=== PATIENT | male | born 1975 | race Two or more races ===

== ENCOUNTER 2023-10-03 10:16 | Emergency (ER) | payer BC, SELFPAY ==
[2023-10-03 10:24] VITALS: BP 153/104; PULSE 73; RESP 18; TEMP 36.3; O2SAT 96; BMI 25.8
--- NOTE | 2023-10-03 11:28 | CRLHL7_ITS ---
For Patients: As a result of the Cures Act, medical imaging exams and procedure reports are released immediately into your electronic medical record. You may view this report before your referring provider. If you have questions, please contact your health care provider. INDICATION: Right upper quadrant abdomen pain. TECHNIQUE: Ultrasound abdomen limited. Sonographic images of the right upper quadrant were obtained using lopez-scale and color Doppler images. COMPARISON: None. FINDINGS: Liver: Normal in size and echotexture. No suspicious masses. No intrahepatic biliary dilatation. Gallbladder: Mildly distended gallbladder with wall thickening and cholelithiasis. Positive sonographic Kunz`s sign per physician/allergy/immunology. Common bile duct: 4 mm. Pancreas: Obscured. Right kidney: Normal in size. Normal echotexture and cortex. No suspicious masses, stones, or hydronephrosis. Vasculature: Proximal abdominal aorta and IVC are unremarkable. IMPRESSION: Mildly distended gallbladder with wall thickening and cholelithiasis. Positive sonographic Kunz sign per physician/allergy/immunology. Constellation of findings are concerning for acute cholecystitis in the appropriate clinical setting. Recommend correlation with localized physical examination and laboratory values. No biliary obstruction. Dictated by Calos Rosa MD @ 10/03/2023 12:35:25 PM (Electronically Signed)
--- NOTE | 2023-10-03 11:29 | ED_ITS ---
HPI - Abdominal Pain General Chief Complaint: Abdominal Pain Stated Complaint: RT sided abdominal pain Time Seen by Provider: 10/03/23 10:42 History of Present Illness HPI narrative: This 48-year-old male comes in reporting right upper quadrant pain that began yesterday. This occurred after eating some ice cream. His pain resolved after some time and again after taking food today he had pain in the right upper quadrant. He states that he continues to have discomfort in this area. He does not report any fevers, nausea, vomiting. Related Data Home Medications ?Medication ?Instructions ?Recorded ?Confirmed Татьяна 10/03/23 ibuprofen 10/03/23 Previous Rx's ?Medication ?Instructions ?Recorded ketorolac 10 mg tablet 10 mg PO Q8H 5 days #15 tabs 10/03/23 Allergies Allergy/AdvReac Type Severity Reaction Status Date / Time No Known Drug Allergies Allergy Verified 10/03/23 10:27 Review of Systems Status of ROS Reports: 10 or more systems reviewed and unremarkable except as noted in History and below Narrative Constitutional: No fevers, no weight gain or loss. Eyes: No discharge. No vision changes. HENT: No congestion, no sore throat, no ear pain. Cardiovascular: No chest pain, no palpitations. Respiratory: No shortness of breath, no wheezes, no cough. Gastrointestinal: No vomiting, no diarrhea. Right upper quadrant abdominal pain. Genitourinary: No dysuria, no hematuria. Musculoskeletal: Normal range of motion. Skin: No rashes, no pruritis. Neurological: No dizziness, weakness, sensory change, speech change. Endo/Heme/Allergies: No bruising or bleeding. No polydipsia. Pysch: no suicidality, no anxiety, no insomnia. All other systems reviewed and are negative. Exam Narrative: Exam Narrative: Constitutional: Well-developed, well-nourished, no acute distress. HEENT: Normocephalic, atraumatic. Neck: Normal range of motion. Nontender. Supple. Heart: Regular. No murmurs. Normal rate. Intact distal pulses. Lungs: Clear to auscultation. No chest discomfort. No wheezes, rhonchi, or rales. Abdomen: Normal bowel sounds. Distinct pain in the right upper quadrant when palpating in this area. No rebound tenderness. Genitalia: Deferred. Back: No midline tenderness. Normal range of motion. Extremities: Normal range of motion. No injury. Skin: Intact. No rash. Warm. No erythema or pallor. Neurologic: No altered sensation. No weakness. Alert and oriented. Psychiatric: No suicidality. No anxiety or depression. No insomnia. Nursing notes and vitals signs are reviewed. Const: Vital Signs, click to edit/add: Vital Signs - 24 hr 10/03/23 10:24 Temperature 97.4 F L Pulse Rate [Pulse Oximeter] 73 Respiratory Rate 18 Blood Pressure [Ri t Upper Arm] 153/104 H Pulse Oximetry 96 Oxygen Delivery Me thod Room Air Course Vital Signs Vital signs: Initial Vital Signs Temperature 97.4 F L 10/03/23 10:24 Temperature Source Temporal Artery Scan 10/03/23 10:24 Pulse Rate 73 10/03/23 10:24 Respiratory Rate 18 10/03/23 10:24 Blood Pressure 153/104 H 10/03/23 10:24 Blood Pressure Mean 120 H 10/03/23 10:24 Blood Pressure Position Sitting 10/03/23 10:24 Pulse Oximetry 96 10/03/23 10:24 Oxygen Delivery Method Room Air 10/03/23 10:24 Vital Signs Temperature 97.4 F L 10/03/23 10:24 Pulse Rate 73 10/03/23 10:24 Respiratory Rate 18 10/03/23 10:24 Blood Pressure 153/104 H 10/03/23 10:24 Pulse Oximetry 96 10/03/23 10:24 Oxygen Delivery Method Room Air 10/03/23 10:24 Temperature 97.4 F L 10/03/23 10:24 Pulse Rate 73 10/03/23 10:24 Respiratory Rate 18 10/03/23 10:24 Blood Pressure 153/104 H 10/03/23 10:24 Pulse Oximetry 96 10/03/23 10:24 Oxygen Delivery Method Room Air 10/03/23 10:24 MDM - Abdominal Pain MDM Narrative Medical decision making narrative: This 48-year-old male comes in with right upper quadrant pain that is postprandial. This is suspicious for gallbladder disease. An ultrasound is obtained which does show multiple stones in the gallbladder with no sign of obstruction. Labs are acquired also and his white count is in normal range as are liver and pancreas enzymes. The patient did receive an IV dose of Toradol 15 mg which brought good relief to his pain. He is okay to be discharged home but encouraged to follow up with surgery Clinic as he seems to be having pain when taking food and would likely need surgical removal of his gallbladder sooner than later. I advised him to return if pain is not controlled or worsening symptoms happen. Lab Data Labs: Lab Results 10/03/23 Range/Units 12:25 WBC 9.25 (4.50-11.00) K/uL RBC 4.96 (4.30-5.90) m/uL Hgb 13.9 (13.5-17.5) gm/dL Hct 42.7 (37.0-53.0) % MCV 86 (80-100) fL MCH 28 (26-34) pg MCHC 33 (32-36) gm/dL RDW Coeff of Christina 12.6 (11.5-15.5) % Plt Count 386 (140-440) K/uL Neut % (Auto) 76.5 H (42.0-72.0) % Lymph % (Auto) 14.7 L (20-44) % Bourbon % (Auto) 4.9 (0.0-11.0) % Eos % (Auto) 3.1 (0.0-7.0) % Baso % (Auto) 0.6 (0.0-3.0) % Neut # (Auto) 7.10 H (1.7-7.0) K/uL Lymph # (Auto) 1.40 (0.90-2.90) K/uL Bourbon # (Auto) 0.50 (0.00-0.90) K/UL Eos # (Auto) 0.29 (0.00-0.50) K/uL Baso # (Auto) 0.06 (0.00-0.30) K/uL Abs Immat Gran (auto) 0.02 (0.00-0.30) K/uL Imm/Tot Granulo (auto) 0.2 % Sodium 139 (135-149) mmol/L Potassium 4.2 (3.6-5.1) mmol/L Chloride 104 (96-114) mmol/L Carbon Dioxide 25 (20-32) mmol/L Anion Gap 10 (7-15) mEq/L BUN 17 (5-24) mg/dL Creatinine 0.9 (0.5-1.5) mg/dL Estimated Creat Clear 101.47 Estimated GFR 106 ml/min Glucose 97 (60-115) mg/dL Calcium 9.4 (8.4-10.6) mg/dL Total Bilirubin 0.7 (0.1-1.5) mg/dL Direct Bilirubin 0.3 (0.0-0.5) mg/dL AST 24 (12-35) U/L ALT 22 (4-50) U/L Alkaline Phosphatase 81 (40-150) U/L Total Protein 8.4 H (6.0-8.3) g/dL Albumin 4.6 (3.3-5.0) g/dL Lipase 46 (23-300) U/L Imaging Data US - abdomen: Radiologist's impression: Mildly distended gallbladder with wall thickening and cholelithiasis. Positive sonographic Kunz sign per manager compensation. Constellation of findings are concerning for acute cholecystitis in the appropriate clinical setting. Recommend correlation with localized physical examination and laboratory values. No biliary obstruction. Discharge Plan Discharge Clinical Impression: Cholelithiasis Patient Disposition: Home, Self-Care Condition: Stable Additional Instructions: Take medication as needed and indicated. Follow up with surgery Clinic for ongoing management. Call [phone] for appointment. Return if worsening. Prescriptions: New ketorolac 10 mg tablet 10 mg PO Q8H 5 Days Qty: 15 0RF No Action ibuprofen Татьяна Follow Up/Referrals: Gloria Jc DO [Primary Care Provider] - Stand Alone Forms: [employer] Info Instructions
--- OUTSIDE RECORDS SUMMARY | 2023-10-03 11:40 | XMS_ITS | Clinical Summary ---
Author Organization [facility] Address [place], [place] [address] Care Team Providers Care Weight Loss Centre Manager Name Role Phone Pcp, No Primary Care Provider Unavailabl e Allergies No known active allergies Medications Medication Sig Dispensed Refills Start Date End Date Status methocarbamoL (ROBAXIN) 500 mg tabletIndications:Acu te left-sided low back pain without sciatica Take 1-2 tablets by mouth every 6-8 hours as needed for back pain and back spasms. 20 Tablet 12/03/2021 Active ibuprofen (ADVIL; MOTRIN) 800 mg tabletIndications:Acu te left-sided low back pain without sciatica Take 1 Tablet (800 mg) by mouth every 6 hours if needed for Pain. 30 Tablet 12/03/2021 Active Active Problems No known active problems Encounters Date Type Department Care Team Description 10/03/2023 7:50 AM CDT Office Visit [facility] [address] [place] [address] Bisi Robles PA Abdominal Pain 10/03/2023 Travel 09/28/2023 11:00 AM CDT Ancillary Procedure [facility] [address] [place] [address] Arrived 09/28/2023 10:15 AM CDT Office Visit [facility] [address] [place] [address] Bisi Robles PA Pain 09/28/2023 Travel from Last 3 Months Immunizations Name Administration Dates Next Due COVID-19 vaccine (Moderna 10 0mcg/0.5mL) PF, MDV 01/22/2021 HepA-HepB (Twinrix) 04/27/2022,12/23/2021,2021 Influenza, IIV4 12/24/2020,01/14/2019,01/03/2018 MMR 05/12/1986,07/25/1981 Td (Age >=7 Years) 10/22/2021 Tdap 11/24/2009 Varicella Vaccine 01/02/2010,12/03/2009 Family History Medical History Relation Name Comments Heart attack Father Hyperlipidemia Mother Hyperlipidemia Sister Relation Name Status Comments Father Mother Alive Sister Alive Social History Tobacco Use Types Packs/Day Years Used Date Smoking Tobacco: Never Smokeless Tobacco: Never Tobacco Cessation:Counseling Given: Yes Alcohol Use Standard Drinks/Week Comments Yes 0 (1 standard drink = 0.6 oz pur e alcohol) PHQ-2 Answer Date Recorded PHQ-2 TOTAL SCORE 0 10/22/2021 Social Connections Answer Date Recorded Frequency of Communication with Friends and Fami ly 0 09/28/2023 Alcohol Use Answer Date Recorded How often do you have a drink containing alcohol ? 1 10/22/2021 How many drinks containing a lcohol do you have on a typical day when you are drinking? 0 10/22/2021 How often do you have five or more drinks on one occasion? 0 10/22/2021 Financial Resource Strain Answer Date R ecorded Difficulty of Paying Living Expenses 3 09/28/2023 Difficulty of Paying Living Expenses Not on file 09/28/2023 Food Insecurity Answer Date Recorded Worried About Running Out of Food in the Last Ye ar 1 09/28/2023 Transportation Needs Answer Date Record ed Lack of Transportation (Medical) 1 09/28/2023 Housing Stability Answer Date Recorded Unable to Pay for Housing in the Last Year 1 09/28/2023 Sex and Gender Information Value Date Recorded Sex Assigned at Not on file Gender Identity Not on file Sexual Orientation Not on file Travel History Travel Start Travel End [place] 09/11/2023 09/18/2023 Obstetrics History Last Filed Vital Signs Vital Sign Reading Time Taken Comments Blood Pressure 139/87 10/03/2023 7:52 AM CDT Pulse 78 10/03/2023 7:52 AM CDT Temperature - - Respiratory Rate - - Oxygen Saturation 96% 10/03/2023 7:52 AM CDT Inhaled Oxygen Concentration - - Weight 85.1 kg (187 lb 9.6 oz) 09/28/2023 10:33 AM CDT Height 176 cm (5' 9.29) 10/22/2021 10:31 AM CDT Body Mass Index 27.47 10/22/2021 10:31 AM CDT Plan of Treatment Health Maintenance Due Date Last Done Comments HIV for age 15-65 1991 BMI (ht and wt on same day) for age 18+ 10/22/2022 10/22/2021 Depression screening for age 12+ 10/26/2022 10/26/2021, 10/25/2021, 10/22/2021, Additional history exists Influenza for age 9-49 11/12/2023 , 01/14/2019, 01/03/2018 Lipids for age 45-75 10/22/2026 10/22/2021 Tetanus booster 10/23/2031 10/22/2021, 11/24/2009 Colonoscopy through age 75 10/27/203110/26, 10/26/2021, 10/26/2021 Tdap Completed 11/24/2009 Hepatitis C screening for age 18-79 Completed 10/22/2021 COVID-19 vaccine series Completed 12/10/19 23, 11/19/2021, 01/22/2021, Additional history exists Pneumococcal series for age 6-64 Aged Out No longer eligible based on patient's age to complete this topic Procedures Procedure Name Priority Date/Time Associated Diagnosis Comments XR ABDOMEN 2 VIEW FLAT AND UPRIGHT OR DECUBITUS STAT 09/28/2023 11:13 AM CDT Abdominal bloating COLONOSCOPY SCREENING Routine 10/26/2021 9:42 AM CDT Screening for colon cancer ANTI HCV Routine 10/22/2021 11:42 AM CDT Need for hepatitis C screening test LIPID PANEL W REFLEX MEASURED LDL Add On 10/22/2021 11:42 AM CDT Family history of coronary artery disease in father Hyperlipidemia, unspecified hyperlipidemia type from Last 3 Months or Most Recently Relevant to Health Maintenance Results * XR ABDOMEN 2 VIEW FLAT AND UPRIGHT OR DECUBITUS (09/28/2023 11:13 AM CDT) Anatomical Region Laterality Modality Abdomen Computed Radiogr aphy 09/28/2023 11:3 3 AM CDT Narrative 09/28/2023 11:33 AM CDT For Patients: ??As a result of the Cures Act, medical imaging exams and procedure reports are released immediately into your electronic medical record. ??You may view this report before your referring provider. ??If you have questions, please contact your health care provider. Indication: Abdominal bloating Technique: Two upright and 2 supine views of the abdomen. Comparison: None. Findings: Mildly elevated right hemidiaphragm. Moderate stool burden in the ascending colon. Mild stool burden in the descending colon. Nonobstructive bowel gas pattern. No large pneumoperitoneum. Visualized lung bases are clear. Impression: Moderate stool burden in the ascending colon. Mild stool burden in the descending colon. Nonobstructive bowel gas pattern. Dictated by Xavi Lopez MD @ 09/28/2023 11:33:15 AM (Electronically Signed) Procedure Note Miah Lopez MD - 09/28/2023 For Patients: As a result of the Cures Act, medical imagingexams and procedure reports are released immediately into your electronicmedical record. You may view this report before your referring provider.If you have questions, please contact your health care provider. Indication: Abdominal bloating Technique: Two upright and 2 supine views of the abdomen. Comparison: None. Findings: Mildly elevated right hemidiaphragm. Moderate stool burden in the ascending colon. Mild stool burden in thedescending colon. Nonobstructive bowel gas pattern. No large pneumoperitoneum. Visualized lung bases are clear. Impression: Moderate stool burden in the ascending colon. Mild stool burden in thedescending colon. Nonobstructive bowel gas pattern. Dictated by Xavi Lopez MD @ 09/28/2023 11:33:15 AM (Electronically Signed) [facility] * COLONOSCOPY (10/26/2021 9:44 AM CDT) 10/26/2021 9:44 AM CDT Narrative Transcriptions Julio Reeves MD - 10/26/2021 10:43 AM CDT Patient Name: Rudy Hunter Procedure Date: 10/26/2021 Gender: Male Date of : 1975 Admit Type: Outpatient Procedure: Colonoscopy Proceduralist: Julio Reeves MD , Macy Huynh (Nurse) Referring MD: Gloria Jc Indications/Pre-Op Diagnosis: Screening for colorectal malignant neoplasm, This is the patient's first colonoscopy Medications: Fentanyl 200 micrograms IV, Midazolam 4 mgIV, The level of sedation administered wasmoderate Procedure Description: The patient had risks, benefits and alternatives explained to andgave informed consent. The patient had a stable cardiopulmonary status and judged an adequate candidate for conscious sedation. The Colonoscope was passed through the anus and advanced to thececum, identified by appendiceal orifice and ileocecal valve. Thecolonoscopy was performed without difficulty. The patient tolerated the procedure well. The quality of the bowel preparation was good. The ileocecal valve, appendiceal orifice, and rectum were photographed. Complications: No immediate complications. Estimated Blood Loss & Specimen: Estimated blood loss: none. Specimen collected - None Findings: The perianal and digital rectal examinations were normal. The entire examined colon appeared normal on direct and retroflexion views. Impressions/Post-Op Diagnosis: - The entire examined colon is normal on direct and retroflexionviews. - No specimens collected. Recommendation: - Patient has a contact number available for emergencies. The signsand symptoms of potential delayed complications were discussed with the patient. Return to normal activities tomorrow. Written discharge instructions were provided to the patient. - Resume previous diet. - Continue present medications. - Repeat colonoscopy in 10 years for screening purposes. Moderate Sedation: Moderate (conscious) sedation was administered by the endoscopy nurse and supervised by the endoscopist. The following parameters were monitored: oxygen saturation, heart rate, respiratory rate, blood pressure, adequacy of pulmonary ventilation and reponse to care. Please refer to the patient's medical record flowsheets and nursing notes for moderate sedation details. Total physician intraservice time was 16 minutes. Julio Reeves MD 10/26/2021 10:43:13 AM This report has been signed electronically. Note Initiated On: 10/26/2021 9:44 AM Procedure Code(s): --- Professional --- 49365, Colonoscopy, flexible; diagnostic, including collection of specimen(s) bybrushing or washing, when performed (separateprocedure) Diagnosis Code(s): --- Professional --- Z12.11, Encounter for screening formalignant neoplasm of colon CPT copyright 2020 [employer]. All rights reserved. The codes documented in this report are preliminary and upon nickel plater reviewmay be revised to meet current compliance requirements. Scope In: 10:24:46 AM Scope Withdrawal Time 0 hours 6 minutes 54 seconds Scope Out: 10:38:30 AM Julio Reeves MD PROCEDURE ORD * (ABNORMAL) LIPID PANEL W REFLEX MEASURED LDL (10/22/2021 11:42 AM CDT) CHOLESTEROL,TOTAL 264(H) 100 - 199 mg/dL 10/23/2021 9:24 AM CDT [facility] TRIGLYCERIDES 197(H) <150 mg/dL 10/23/2021 9:24 AM CDT [facility] HDL CHOLESTEROL 42 >40 mg/dL 2 9:24 AM CDT [facility] NON-HDL CHOLESTEROL 222(H) <145 mg/dl 10/23/2021 9:24 AM CDT [facility] CHOL/HDL RATIO 6.29(H) <4.50 10/23/2021 9:24 AM CDT [facility] LDL CHOLESTEROL 183(H) <=130 mg/dL 10/23/2021 9:24 AM CDT [facility] VLDL CHOLESTEROL 39(H) <=30 mg/dL 10/23/2021 9:24 AM CDT [facility] PROVIDER ORDERED STATUS RANDOM 10/23/2021 9:24 AM CDT [facility] Blood BLOOD SPECIMEN / Unknown Venipuncture / Unknown 10/22/2021 11:42 AM CDT 10/22/2021 11:43 AM CDT Gloria Jc DO CHEMISTRY [facility] [address] [place] [address], * ANTI HCV (10/22/2021 11:42 AM CDT) HEPATITIS C ANTIBODY Non-React radha Non-React radha 10/22/2021 10:57 PM CDT [facility] Comment:Antibodies to HCV no t detected; does not exclude the possibility of exposure to HCV. Blood BLOOD SPECIMEN / Unknown Venipuncture / Unknown 10/22/2021 11:42 AM CDT 10/22/2021 11:43 AM CDT Gloria Jc DO SEND OUTS [facility] [address] [place] [address], from Last 3 Months or Most Recently Relevant to Health Maintenance Care Teams Weight Loss Centre Manager Relationship Specialty Start Date End Date Pcp, No . PCP - General 08/25/21
[2023-10-03] MEDS: KETOROLAC 30 MG/ML inj 15 MG IVP (12:30)
[2023-10-03 12:35] LABS: Basophils Absolute Auto 0.06 K/uL (0.00-0.30); Basophils Percent Auto 0.6 % (0.0-3.0); Eosinophils Absolute Auto 0.29 K/uL (0.00-0.50); Eosinophils Percent Auto 3.1 % (0.0-7.0); Hematocrit 42.7 % (37.0-53.0); Hemoglobin* 13.9 gm/dL (13.5-17.5); Immature Granulocytes Abs Auto 0.02 K/uL (0.00-0.30); Immature Granulocytes Pct Auto 0.2 %; Lymphocytes Percent Auto 14.7 % (20-44); Mean Corpuscular HGB Conc 33 gm/dL (32-36); Mean Corpuscular Hemoglobin 28 pg (26-34); Mean Corpuscular Volume 86 fL (80-100); Monocytes Percent Auto 4.9 % (0.0-11.0); Neutrophils Percent Auto 76.5 % (42.0-72.0); Platelet Count* 386 K/uL (140-440); RDW Coefficient of Variation % 12.6 % (11.5-15.5); Red Blood Count 4.96 m/uL (4.30-5.90); White Blood Count* 9.25 K/uL (4.50-11.00)
[2023-10-03 12:36] LABS: Slide Review Reflex No
[2023-10-03 12:48] LABS: Albumin* 4.6 g/dL (3.3-5.0); Chloride* 104 mmol/L (96-114); Potassium* 4.2 mmol/L (3.6-5.1); Sodium* 139 mmol/L (135-149)
[2023-10-03 12:50] LABS: Creatinine* 0.9 mg/dL (0.5-1.5); Est. Creatinine Clearance* 101.47; Estimated Glomerular Filt Rate 106 ml/min
[2023-10-03 12:51] LABS: Alanine Aminotransferase* 22 U/L (4-50); Alkaline Phosphatase* 81 U/L (40-150); Anion Gap 10 mEq/L (7-15); Aspartate Amino Transferase* 24 U/L (12-35); Bilirubin Direct* 0.3 mg/dL (0.0-0.5); Bilirubin Total* 0.7 mg/dL (0.1-1.5); Blood Urea Nitrogen* 17 mg/dL (5-24); Calcium* 9.4 mg/dL (8.4-10.6); Carbon Dioxide* 25 mmol/L (20-32); Glucose* 97 mg/dL (60-115); Lipase* 46 U/L (23-300); Total Protein* 8.4 g/dL (6.0-8.3)
== END 2023-10-03 13:13 | disposition home or self-care (01) ==
PROVIDERS: Emergency Provider Emergency Medicine Emergency Medical Services; PCP Family Medicine
DX: K80.50 Calculus of bile duct without cholangitis or cholecystitis without obstruction (principal)
CPT/HCPCS: 36415; 76705; 80048; 80076; 83690; 85025; 96374; 99284; J1885

== ENCOUNTER 2023-10-06 08:19 | Day surgery (SDC) | payer BC, SELFPAY ==
[2023-10-06] VITALS (12 sets, daily range): BP systolic 129–144; BP diastolic 78–92; PULSE 62–81; RESP 16; TEMP 36.6–36.9; O2SAT 92–96; BMI 27.3
--- OUTSIDE RECORDS SUMMARY | 2023-10-06 08:22 | XMS_ITS | Clinical Summary ---
Author Organization [facility] Address [place], [place] [address] Care Team Providers Care Running Specialist Name Role Phone Pcp, No Primary Care [...] Encounters Date Type Department Care Team Description 10/04/2023 1:45 PM CDT Office Visit [facility] [address] [facility] [address] Katalina Art MD Consult (Gallbladder, Right upper quadrant pain) 10/04/2023 Travel 10/03/2023 7:50 AM CDT Office Visit [facility] [address] [facility] [address] Bisi Robles PA Abdominal Pain 10/03/2023 Orders Only [facility] Scanner 1 scan: (1-Ord) [facility], 10/03/2023 10/03/2023 Travel 09/28/2023 11:00 AM CDT Ancillary Procedure [facility] [address] [facility] [address] 09/28/2023 10:15 AM CDT Office Visit [facility] [address] [place] [address] Bisi Robles PA Pain 09/28/2023 Travel from [...] Given: Yes Alcohol Use Standard Drinks/Week Comments Not Currently 0 (1 standard drink = 0.6 oz [...] Sign Reading Time Taken Comments Blood Pressure 145/94 10/04/2023 1:49 PM CDT Pulse 87 10/04/2023 1:49 PM CDT Temperature - - Respiratory Rate - - Oxygen Saturation 98% 10/04/2023 1:49 PM CDT Inhaled Oxygen Concentration - - Weight 83.9 kg (185 lb) 10/04/2023 1:49 PM CDT Height 176 cm (5' 9.29) 10/22/2021 10:31 AM CDT Body Mass Index 27.09 10/22/2021 10:31 AM CDT Plan of Treatment [...] 18-79 Completed 10/22/2021 COVID-19 vaccine series Completed 12/10/19, 11/19/2021, 01/22/2021, Additional history exists Pneumococcal series for age 6-64 Aged Out No longer eligible based on patient's age to complete this topic Procedures Procedure Name Priority Date/Time Associated Diagnosis Comments SCAN-ULTRASOUND REPORT 10/03/2023 12:00 AM CDT XR ABDOMEN 2 VIEW FLAT AND UPRIGHT [...] Recently Relevant to Health Maintenance Results * SCAN-ULTRASOUND REPORT (10/03/2023 12:00 AM CDT) Anatomical Region Laterality Modality Other Scanner OTHER * XR ABDOMEN 2 VIEW FLAT AND [...] 9:44 AM Procedure Code(s): --- Professional --- 54062, Colonoscopy, flexible; diagnostic, including collection of specimen(s) bybrushing or washing, when performed (separateprocedure) Diagnosis Code(s): --- Professional --- Z12.11, Encounter for screening formalignant neoplasm of colon CPT copyright 2020 [employer]. All rights reserved. The codes documented in this report are preliminary and upon outpatient coder reviewmay be revised to meet current compliance requirements. Scope In: 10:24:46 AM Scope Withdrawal Time 0 hours 6 minutes 54 seconds Scope Out: 10:38:30 AM Jluio Reeves MD PROCEDURE ORD * (ABNORMAL) LIPID PANEL W REFLEX MEASURED LDL (10/22/2021 11:42 AM CDT) CHOLESTEROL,TOTAL 264(H) 100 - 199 mg/dL 10/23/2021 9:24 AM CDT [facility] TRIGLYCERIDES 197(H) <150 mg/dL 10/23/2021 9:24 AM CDT [facility] HDL CHOLESTEROL 42 >40 mg/dL 9:24 AM CDT [facility] NON-HDL CHOLESTEROL 222(H) <145 mg/dl 10/23/2021 9:24 AM CDT [facility] CHOL/HDL RATIO 6.29(H) <4.50 10/23/2021 9:24 AM CDT [facility] LDL CHOLESTEROL 183(H) <=130 mg/dL 10/23/2021 9:24 AM CDT [facility] VLDL CHOLESTEROL 39(H) <=30 mg/dL 10/23/2021 9:24 AM CDT [facility] PROVIDER ORDERED STATUS RANDOM 10/23/2021 9:24 AM CDT [facility] Blood BLOOD SPECIMEN / Unknown Venipuncture / Unknown 10/22/2021 11:42 AM CDT 10/22/2021 11:43 AM CDT Gloria Jc DO CHEMISTRY [facility] [address] [place] [address], [place] * ANTI HCV (10/22/2021 11:42 AM CDT) HEPATITIS C ANTIBODY Non-React radha Non-React radha 10/22/2021 10:57 PM CDT [facility] Comment:Antibodies to HCV no t detected; does not exclude the possibility of exposure to HCV. Blood BLOOD SPECIMEN / Unknown Venipuncture / Unknown 10/22/2021 11:42 AM CDT 10/22/2021 11:43 AM CDT Gloria Jc DO SEND OUTS [facility] [address] [place] [address], from Last 3 Months or Most Recently Relevant to Health Maintenance Care Teams Running Specialist Relationship Specialty Start Date End Date Pcp, No . PCP - General 08/25/21
[2023-10-06] MEDS: LACTATED RINGERS 1000 ML 1,000 ML 100 ML IV ×2 (08:35→12:19)
[2023-10-06] MEDS: SODIUM CHLORIDE 0.9 % (FLUSH) 10 ML SYRINGE IVF (08:35)
[2023-10-06] MEDS: PIPERACILLIN/TAZOBACTAM 3.375 GM INJ IVPB (10:30)
--- NOTE | 2023-10-06 10:40 | W.ANESCHARGE ---
Anesthesia Charges Start Date/Time Anesthesia Start Date: 10/06/23 Anesthesia Start Time: 10:18 Stop Date/Time Anesthesia Stop Date: 10/06/23 Anesthesia Stop Time: 13:44
[2023-10-06] MEDS: BUPIVACAINE 0.5% 30 ML INJECTION (10:53)
--- NOTE | 2023-10-06 14:12 | W.ANESCHARGE ---
Anesthesia Charges Start Date/Time Anesthesia Start Date: 10/06/23 Anesthesia Start Time: 10:18 Stop Date/Time Anesthesia Stop Date: 10/06/23 Anesthesia Stop Time: 13:44
--- NOTE | 2023-10-06 17:42 | PM.GSPRC ---
Operative Note Date of procedure: 10/06/23 Pre-op diagnosis: Acute cholecystitis Post-op diagnosis: Same Type of Procedure: Laparoscopic cholecystectomy Indications: Patient is a 48-year-old male who presented to clinic with complaints of persistent right-sided abdominal pain. He was seen in the emergency department on 10/03/2023 for symptoms, but was discharged with conservative management. On evaluation in clinic on 10/04/2023 clinical history and exam were consistent with chronic cholecystitis. risks and benefits of surgery were discussed at length with the patient, please see consultation note for full discussion. Risks included but was not limited to: Bleeding, infection, risk of damage to surrounding structures, possible need for additional procedures, possible need to convert to an open operation and postoperative complications such as pneumonia, pulmonary emboli or [place]. All questions and concerns were addressed with the patient agreeing to proceed. Procedure Description: After discussing the risks and benefits of the procedure, the patient signed informed consent.? The operative site was marked and the patient was brought to the operating room and placed on the operating table in supine position.? Care was taken to pad the patient's pressure points.?? The patient was then intubated by anesthesia.?? The operative site was then prepped and draped in the usual sterile fashion.? A time-out was then performed. Entrance to the abdomen was gained via a 5 mm Visiport in the left upper quadrant. The abdomen was insufflated and briefly surveyed for signs of injury. There was none. 11 mm umbilical port was placed as well as 2 working ports along the right costal margin. Patient was then placed in reverse Trendelenburg position with the right side up. The gallbladder fundus was encased in omentum. This was dissected off the fundus with blunt dissection and cautery. The underlying gallbladder was very firm and unable to be grasped. A laparoscopic needle was used to remove approximately 60 mL of dark bilious fluid. The gallbladder fundus was then grasped and retracted cephalad. A large amount of omental adhesions were present on the gallbladder wall. These were carefully dissected free with cautery. The infundibulum was grasped. A combination of hook cautery and blunt dissection was used to carefully dissect out the gallbladder. This portion of the procedure was difficult secondary to active inflammation and a large stone at the base of the gallbladder. A small artery was seen going into the gallbladder. Two clips were applied proximally and distally the artery was transected with cautery. The cystic artery was identified anterior to the cystic duct. The gallbladder was dissected off the cystic plate a [address], to obtain the critical view. Once this was achieved the cystic duct and artery were each clipped with 2 clips proximally and 1 clip distally and transected with the scissors. The gallbladder was then taken off of the liver bed and removed from the abdomen using an Endo-Catch bag. The gallbladder bed was surveyed for hemostasis, which was excellent at the end of the case. A small amount of bile which had spilled was suctioned from the abdomen. The ports were then removed under direct vision. The umbilical port fascia was closed with 0 Vicryl. The skin was closed with absorbable subcuticular suture. Instrument sponge and needle counts were correct at the end of the case. The patient was then woken and transferred to the PACU in stable condition. Findings: Acute cholecystitis Anesthesia: GETA Surgeon: Katalina Art MD Estimated blood loss (mL): 50 Specimen: Gallbladder Condition: stable Disposition: PACU
== END 2023-10-06 15:11 | disposition home or self-care (01) ==
PROVIDERS: PCP Family Medicine; Visit Provider Surgery
PROC: 0FT44ZZ Resection of Gallbladder, Percutaneous Endoscopic Approach (ICD-10-PCS; CPT 47562; principal; 2023-10-06 09:30)
DX: K80.00 Calculus of gallbladder with acute cholecystitis without obstruction (principal); K82.8 Other specified diseases of gallbladder
CPT/HCPCS: 47562; 00790; 88304; J0665; J1100; J1170; J2250; J2405; J2543; J2704; J3010; J7120